=== PATIENT | male | born 1995 | race Caucasian/White ===

== ENCOUNTER 2022-12-15 09:29 | Outpatient (CLI) | payer OTHER, SELFPAY ==
--- NOTE | ~2022-12-15 | US_ITS ---
EXAMINATION: US retroperitoneal comp, US abdomen limited DATE: 12/15/2022 11:02 INDICATION: Elevated liver function in serum creatinine TECHNIQUE: Multiple grayscale and Doppler ultrasound images of the abdomen including the bilateral ki dneys and bladder were obtained. COMPARISON: None FINDINGS: The visualized pancreatic body is normal in appearance. The pancreatic head and tail are not clearly visualized. Proximal abdominal is normal in caliber measuring 1.9 cm in AP diameter. Liver has kofi l contour, with a smooth surface. There is increased parenchymal echogenicity, coarsened echotexture and poor acoustic penetration consistent with diffuse hepatic steatosis. No liver lesion identified. No intrahepatic biliary duct dilation suspected. Portal venous flow was seen in the hepatopetal, nor mal direction and has normal Doppler waveform. The poor acoustic penetration obscures the inferior ve na cava. The gallbladder is normal in appearance. There is no cholelithiasis. The common bile duct m easures 4 mm, which is normal. Sonographic Andersen sign was reported as negative by the olericulturist. There is normal renal contour and echogenicity bilaterally. The right kidney measures 9.9 x 4.8 x 4.9 cm and the left 12.3 x 4.9 x 3.6 cm. There are no focal renal lesions identified. There is no hydr onephrosis. Bladder is normal accounting for partially decompressed on the initial images with bilate ral ureteral jets visualized on color Doppler. Normal calculated postvoid bladder volume of 3 mL. IMPRESSION: 1. Diffuse hepatic steatosis. Otherwise unremarkable right upper quadrant ultrasound. 2. Normal kidneys with no hydronephrosis. Reviewed, dictated and finalized at location A. CAL BILLING AND CODING INSTRUCTOR IMPRESSION: 1. Diffuse hepatic steatosis. Otherwise unremarkable right upper quadrant ultra sound. 2. Normal kidneys with no hydronephrosis.
--- NOTE | ~2022-12-15 | US_ITS ---
EXAMINATION: US thyroid DATE: 12/15/2022 11:01 INDICATION: Abnormal thyroid function tests. TECHNIQUE: Multiple ultrasound images of the thyroid were obtained. COMPARISON: None. FINDINGS: The right thyroid lobe measures 5.3 x 2.2 x 1.3 cm. The left thyroid lobe measures 5.4 x 1.7 x 1.7 c m. The thyroid is diffusely heterogeneous and hypoechoic. No discrete nodule. Vascularity is normal. IMPRESSION: 1. 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 Reviewed, dictated and finalized at location A. DRENS CLUB ATTENDANT
== END 2022-12-15 09:30 | disposition home or self-care (01) ==
LOC: CHSIMG 09:33
PROVIDERS: PCP Registered Nurse; Visit Provider Registered Nurse
DX: R79.89 Other specified abnormal findings of blood chemistry (principal); K76.0 Fatty (change of) liver, not elsewhere classified
CPT/HCPCS: 76536; 76705; 76770

== ENCOUNTER 2023-05-20 08:01 | Outpatient (CLI) | payer OTHER, SELFPAY ==
[2023-05-20 08:14] LABS: Basophils Absolute Auto 0.04 K/mm3 (0.00-0.10); Basophils Percent Auto 0.5 % (0.0-1.0); Eosinophils Percent Auto 1.3 % (1.0-6.0); Hematocrit 47.4 % (40.0-54.0); Hemoglobin 15.6 g/dL (14.0-18.0); Immature Granulocyte Absolute 0.03 K/mm3 (0.00-0.00); Immature Granulocyte Percent A 0.4 % (0.0-0.0); Lymphocytes Absolute Auto 2.22 K/mm3 (1.10-4.50); Lymphocytes Percent Auto 29.2 % (18.0-42.0); Mean Corpuscular HGB Conc 32.9 g/dL (32.0-36.0); Mean Corpuscular Hemoglobin 28.9 pg (27.0-31.0); Mean Corpuscular Volume 87.8 fL (78.0-102.0); Mean Platelet Volume 9.7 fl (8.7-11.0); Monocytes Absolute Auto 0.62 K/mm3 (0.10-0.90); Monocytes Percent Auto 8.2 % (2.0-11.0); Neutrophils Absolute Auto 4.6 K/mm3 (1.7-7.2); Neutrophils Percent Auto 60.4 % (50.0-70.0); Platelet Count Result 211 K/mm3 (150-420); Red Cell Distribution Width 12.3 % (11.6-14.4); White Blood Count 7.6 K/mm3 (4.8-10.8)
[2023-05-20 08:55] LABS: Alanine Aminotransferase 32 U/L (16-63); Albumin Level 3.9 g/dL (3.4-5.0); Alkaline Phosphatase 66 U/L (46-116); Anion Gap 8 mmol/L (8-16); Aspartate Amino Transferase 14 U/L (15-37); Bilirubin,Total 0.5 mg/dL (0.00-1.00); Blood Urea Nitrogen 16 mg/dL (7-18); Calcium 9.1 mg/dL (8.5-10.1); Carbon Dioxide 33 mmol/L (21-32); Chloride 104 mmol/L (98-108); Estimated Glomerular Filt Rate > 60; Glucose 99 mg/dL (70-99); Osmolality Calculated 301 mOsm/kg (285-295); Potassium 3.9 mmol/L (3.5-5.1); Sodium 145 mmol/L (136-145); Total Protein 6.9 g/dL (6.4-8.2)
[2023-05-22 04:49] LABS: Total Triiodothyronine (T3) 108.7 ng/dL (76-181)
[2023-05-24 07:50] LABS: Vitamin D 25 Hydroxy 69 ng/mL (30-100)
== END 2023-05-20 08:02 | disposition home or self-care (01) ==
LOC: CHSLAB 08:03
PROVIDERS: PCP Family Medicine; Visit Provider Registered Nurse
DX: E55.9 Vitamin D deficiency, unspecified (principal); E78.5 Hyperlipidemia, unspecified; K76.0 Fatty (change of) liver, not elsewhere classified; E06.3 Autoimmune thyroiditis
CPT/HCPCS: 36415; 80053; 82306; 84436; 84443; 84480; 85025

== ENCOUNTER 2023-06-20 09:22 | Outpatient (CLI) | payer OTHER, SELFPAY ==
[2023-06-20 09:49] LABS: Basophils Absolute Auto 0.04 K/mm3 (0.00-0.10); Basophils Percent Auto 0.5 % (0.0-1.0); Eosinophils Absolute Auto 0.08 K/mm3 (0.02-0.50); Eosinophils Percent Auto 1.1 % (1.0-6.0); Hemoglobin 15.6 g/dL (14.0-18.0); Immature Granulocyte Absolute 0.05 K/mm3 (0.00-0.00); Immature Granulocyte Percent A 0.7 % (0.0-0.0); Lymphocytes Absolute Auto 2.22 K/mm3 (1.10-4.50); Lymphocytes Percent Auto 29.9 % (18.0-42.0); Mean Corpuscular HGB Conc 33.2 g/dL (32.0-36.0); Mean Corpuscular Hemoglobin 29.5 pg (27.0-31.0); Mean Corpuscular Volume 88.8 fL (78.0-102.0); Mean Platelet Volume 10.1 fl (8.7-11.0); Monocytes Percent Auto 8.1 % (2.0-11.0); Neutrophils Absolute Auto 4.4 K/mm3 (1.7-7.2); Neutrophils Percent Auto 59.7 % (50.0-70.0); Platelet Count Result 199 K/mm3 (150-420); Red Blood Count 5.29 M/mm3 (4.70-6.10); Red Cell Distribution Width 12.6 % (11.6-14.4); White Blood Count 7.4 K/mm3 (4.8-10.8)
[2023-06-20 10:42] LABS: Alanine Aminotransferase 45 U/L (16-63); Albumin Level 3.9 g/dL (3.4-5.0); Alkaline Phosphatase 67 U/L (46-116); Anion Gap 8 mmol/L (8-16); Aspartate Amino Transferase 14 U/L (15-37); Bilirubin,Total 0.4 mg/dL (0.00-1.00); Blood Urea Nitrogen 16 mg/dL (7-18); Calcium 8.9 mg/dL (8.5-10.1); Carbon Dioxide 33 mmol/L (21-32); Chloride 107 mmol/L (98-108); Estimated Glomerular Filt Rate > 60; Glucose 92 mg/dL (70-99); Osmolality Calculated 307 mOsm/kg (285-295); Potassium 4.1 mmol/L (3.5-5.1); Sodium 148 mmol/L (136-145); Thyroid Stimulating Hormone 3.83 uIU/mL (0.36-3.74); Total Protein 6.7 g/dL (6.4-8.2)
[2023-06-24 12:41] LABS: T4 Thyroxine 10.7 mcg/dL (5.9-10.3)
[2023-06-24 16:27] LABS: Total Triiodothyronine (T3) 121 ng/dL (76-181)
[2023-06-25 21:21] LABS: Vitamin D 25 Hydroxy 76 ng/mL (30-100)
== END 2023-06-20 09:23 | disposition home or self-care (01) ==
LOC: CHSLAB 09:23
PROVIDERS: PCP Registered Nurse; Visit Provider Registered Nurse
DX: E06.3 Autoimmune thyroiditis (principal)
CPT/HCPCS: 36415; 80053; 82306; 84436; 84443; 84480; 84481; 85025

== ENCOUNTER 2023-10-28 10:35 | Outpatient (CLI) | payer OTHER, SELFPAY ==
[2023-10-28 11:29] LABS: Basophils Absolute Auto 0.03 K/mm3 (0.00-0.10); Basophils Percent Auto 0.4 % (0.0-1.0); Eosinophils Percent Auto 1.3 % (1.0-6.0); Hematocrit 49.3 % (40.0-54.0); Hemoglobin 16.1 g/dL (14.0-18.0); Immature Granulocyte Absolute 0.03 K/mm3 (0.00-0.00); Immature Granulocyte Percent A 0.4 % (0.0-0.0); Lymphocytes Absolute Auto 2.05 K/mm3 (1.10-4.50); Lymphocytes Percent Auto 27.4 % (18.0-42.0); Mean Corpuscular HGB Conc 32.7 g/dL (32.0-36.0); Mean Corpuscular Hemoglobin 29.5 pg (27.0-31.0); Mean Corpuscular Volume 90.3 fL (78.0-102.0); Mean Platelet Volume 9.8 fl (8.7-11.0); Monocytes Absolute Auto 0.66 K/mm3 (0.10-0.90); Monocytes Percent Auto 8.8 % (2.0-11.0); Neutrophils Absolute Auto 4.6 K/mm3 (1.7-7.2); Neutrophils Percent Auto 61.7 % (50.0-70.0); Platelet Count Result 202 K/mm3 (150-420); Red Blood Count 5.46 M/mm3 (4.70-6.10); Red Cell Distribution Width 12.3 % (11.6-14.4); White Blood Count 7.5 K/mm3 (4.8-10.8)
[2023-10-28 12:07] LABS: Alanine Aminotransferase 40 U/L (16-63); Alkaline Phosphatase 63 U/L (46-116); Anion Gap 1 mmol/L (8-16); Aspartate Amino Transferase 17 U/L (15-37); Bilirubin,Total 0.6 mg/dL (0.00-1.00); Blood Urea Nitrogen 10 mg/dL (7-18); Calcium 9.2 mg/dL (8.5-10.1); Carbon Dioxide 37 mmol/L (21-32); Chloride 102 mmol/L (98-108); Cholesterol 110 mg/dL (0-200); Estimated Glomerular Filt Rate > 60; Glucose 86 mg/dL (70-99); HDL Direct 48 mg/dL (40-60); LDL Cholesterol Calculated 53 mg/dL (<130); Osmolality Calculated 288 mOsm/kg (285-295); Sodium 140 mmol/L (136-145); Thyroid Stimulating Hormone 6.98 uIU/mL (0.36-3.74); Triglycerides 43 mg/dL (0-150)
[2023-11-01 21:48] LABS: Vitamin D 25 Hydroxy 73 ng/mL (30-100)
== END 2023-10-28 10:36 | disposition home or self-care (01) ==
LOC: CHSLAB 10:38
PROVIDERS: PCP Registered Nurse; Visit Provider Registered Nurse
DX: E55.9 Vitamin D deficiency, unspecified (principal); E78.5 Hyperlipidemia, unspecified; E06.3 Autoimmune thyroiditis
CPT/HCPCS: 36415; 80053; 80061; 82306; 84439; 84443; 85025

== ENCOUNTER 2023-11-20 17:16 | Emergency (ER) | payer OTHER, SELFPAY ==
--- NOTE | ~2023-11-20 | CT_ITS ---
EXAMINATION: CT abdomen pelvis wo con DATE: 11/20/2023 18:11 INDICATION: Abdominal pain. Right testicular pain. TECHNIQUE: Computed tomography (CT) of the abdomen and pelvis was performed without intravenous contr ast. Automated exposure control and iterative reconstruction technique were employed. The dose-length product was 1027.08 mGy-cm. COMPARISON: None. FINDINGS: The visualized portions of the lung bases demonstrate mild bronchiectasis. Calcified pulmon rupert nodules are consistent with old granulomatous disease. There are nodules in the lungs measuring u p to 4 mm, likely benign. No pleural effusion. The heart size is normal. No pericardial effusion. The re is a small sliding hiatal hernia. There is diffuse hepatic steatosis. The gallbladder, spleen, kolb creas, adrenal glands, and right kidney are normal. There is a 1 mm stone in left kidney. There are n o dilated loops of bowel. The appendix is normal. There are no pathologically enlarged lymph nodes. T here is no free intraperitoneal fluid. There is osteonecrosis involving the femoral heads. There is m ild lumbar spondylosis. IMPRESSION: 1. Small sliding hiatal hernia. 2. Diffuse hepatic steatosis. 3. Small pulmonary nodules and mild bilateral bronchiectasis, likely chronic infection. 4. Osteonecrosis involving the femoral heads. Reviewed, dictated and finalized at location E. ION DIRECTOR IMPRESSION: 1. Small sliding hiatal hernia. 2. Diffuse hepatic steatosis. 3. Small pulmonary nodules and mild bilateral bronchiectasis, likely chronic in fection. 4. Osteonecrosis involving the femoral heads.
[2023-11-20 17:19] VITALS: BP 137/94; PULSE 86; RESP 19; O2SAT 98
--- NOTE | 2023-11-20 17:47 | ED.ABDPAIN ---
HPI - Abdominal Pain General Chief Complaint: Abdominal Pain Stated Complaint: ABD PAIN Time Seen by Provider: 11/20/23 17:24 Source: patient Mode of arrival: ambulatory Limitations: no limitations History of Present Illness HPI narrative: Patient is a 28-year-old male with acute on chronic abdominal pain specifically midepigastrium. He also has a new finding on his right testicle area in the scrotum above the right testicle of some new material type sensation. MD elicited complaint: abdominal pain Pertinent past history: other ( Chronic abdominal pains) Onset (ago): week(s) (1) Pain Consistency: constant Location: epigastric Severity: moderate Pain scale (0-10): 5 Quality: cramping, stabbing and sharp Radiation: none Migration to: no migration Exacerbating factors: nothing Relieving factors: nothing Context: confirms other ( patient has chronic abdominal pains but this appears different in nature) Associated symptoms: other ( he also noticed right testicle new finding on the top of the right testicle) Related Data Allergies Allergy/AdvReac Type Severity Reaction Status Date / Time No Known Allergies Allergy Verified 11/20/23 19:13 Review of Systems Review of Systems: All systems reviewed & are unremarkable except as noted in HPI and below Constitutional: Constitutional: Reports no additional constitutional complaints Eyes: Eyes: Reports no additional eye complaints ENT: Reports system reviewed and no additional complaints, except as documented Cardiovascular: Cardiovascular: Reports no additional cardiovascular complaints Respiratory: Respiratory: Reports no additional respiratory complaints Gastrointestinal: Gastrointestinal: Reports no additional gastrointestinal complaints Genitourinary: Genitourinary: Reports no additional male genitourinary complaints Musculoskeletal: Musculoskeletal: Reports no additional musculoskeletal complaints Integumentary/Breasts: Skin/Breast: Reports system reviewed and no additional complaints, except as docu Neurologic: Reports system reviewed and no additional complaints, except as documented Psychiatric: Psychiatric: Reports no additional psychiatric complaints Endocrine: Endocrine: Reports no additional endocrine complaints Hematologic/Lymphatic: Hematologic/Lymphatic: Reports no additional hematologic/lymphatic complaints Allergic/Immunologic: Allergic/Immunologic: Reports no additional allergic/immunologic complaints PMFSH Family History Family History Mother No family history of hypertension Social History Social History Smoking status: Never smoker Exam Const: General: healthy appearing Nutritional Appearance: well nourished Orientation/consciousness: patient oriented x3 HENMT: Head: normal to inspection Ears: external ears normal Face/Nose/Sinus: Normal external nose present Eyes: Conjunctivae: conjunctivae normal Pupils: Equal, round and reactive pupils present EOM: EOMs intact bilaterally Neck: Neck: normal visual inspection Chest: Chest palpation & inspection: normal inspection of the chest Resp: Effort & Inspection: normal respiratory effort and not labored Auscultation: clear to auscultation bilaterally and no crackles Cardio: Rate: regular rate Rhythm: regular rhythm Heart sounds: no murmurs GI: Inspection: non-distended GI Palp: Yes Soft to palpation, No Tenderness to palpation present (GI) and No Guarding due to palpation present (GI) Auscultation: normal bowel sounds : General: Yes bladder normal to palpation Back/Spine/Pelvis: Back: no CVA tenderness Skin: General skin exam: normal color Rashes: no rashes Wounds: no wounds Neuro: General: patient oriented x3 Cranial nerves: Yes Nystagmus not present Speech: normal speech Extrem: General: normal to inspection Psych: Mental Status: mental status grossly no
[2023-11-20 17:57] LABS: Appearance Urine Clear (Clear); Bilirubin Urine Negative (Negative); Blood Urine Negative (Negative); Color Urine Yellow (Yellow); Glucose Urine UA Negative (Negative); Ketones Urine Negative (Negative); Leukocyte Esterase Ur Negative LEU/UL (Negative); Nitrate Urine Negative (Negative); Protein Urine Negative (Negative); Urobilinogen Urine 0.2 mg/dL (0.2-1.0); pH Urine 6.5 (5.0-8.0)
[2023-11-20 18:01] LABS: Add Urine Microscopic? NO
[2023-11-20 18:25] LABS: Basophils Absolute Auto 0.03 K/mm3 (0.00-0.10); Basophils Percent Auto 0.4 % (0.0-1.0); Eosinophils Absolute Auto 0.06 K/mm3 (0.02-0.50); Eosinophils Percent Auto 0.8 % (1.0-6.0); Hematocrit 45.6 % (40.0-54.0); Hemoglobin 15.3 g/dL (14.0-18.0); Immature Granulocyte Absolute 0.02 K/mm3 (0.00-0.00); Immature Granulocyte Percent A 0.3 % (0.0-0.0); Lymphocytes Absolute Auto 1.44 K/mm3 (1.10-4.50); Mean Corpuscular HGB Conc 33.6 g/dL (32.0-36.0); Mean Corpuscular Hemoglobin 29.7 pg (27.0-31.0); Mean Corpuscular Volume 88.4 fL (78.0-102.0); Mean Platelet Volume 9.3 fl (8.7-11.0); Monocytes Absolute Auto 0.59 K/mm3 (0.10-0.90); Monocytes Percent Auto 8.2 % (2.0-11.0); Neutrophils Absolute Auto 5.1 K/mm3 (1.7-7.2); Neutrophils Percent Auto 70.3 % (50.0-70.0); Platelet Count Result 192 K/mm3 (150-420); Red Blood Count 5.16 M/mm3 (4.70-6.10); Red Cell Distribution Width 12.1 % (11.6-14.4); White Blood Count 7.2 K/mm3 (4.8-10.8)
[2023-11-20 18:40] LABS: Partial Thromboplastin Time 24.4 SEC (23.90-30.70)
[2023-11-20 18:43] LABS: Alanine Aminotransferase 52 U/L (16-63); Albumin Level 3.9 g/dL (3.4-5.0); Alkaline Phosphatase 54 U/L (46-116); Anion Gap 3 mmol/L (8-16); Aspartate Amino Transferase 15 U/L (15-37); Bilirubin,Total 0.4 mg/dL (0.00-1.00); Blood Urea Nitrogen 10 mg/dL (7-18); Calcium 8.4 mg/dL (8.5-10.1); Carbon Dioxide 36 mmol/L (21-32); Chloride 103 mmol/L (98-108); Estimated CRCL calculation 95 ml/min; Estimated Glomerular Filt Rate > 60; Glucose 98 mg/dL (70-99); Lipase 25 U/L (16-77); Osmolality Calculated 293 mOsm/kg (285-295); Potassium 3.8 mmol/L (3.5-5.1); Sodium 142 mmol/L (136-145); Total Protein 6.9 g/dL (6.4-8.2)
[2023-11-20 18:45] LABS: Lactic Acid Reflex 1.4 mmol/L (0.4-2.0)
[2023-11-20] MEDS: MAG HYDROX/ALUMINUM HYD/SIMETH 30 ML, PHENobarb/HYOSCY/ATROPINE/SCOP 32.4 MG, LIDOCAINE... PO (19:36)
[2023-11-20 19:39] VITALS: BP 136/87; PULSE 98; RESP 16; TEMP 36.9; O2SAT 97
== END 2023-11-20 19:55 | disposition home or self-care (01) ==
PROVIDERS: Emergency Provider Emergency Medicine; PCP Registered Nurse
DX: K29.70 Gastritis, unspecified, without bleeding (principal)
CPT/HCPCS: 36415; 74176; 80053; 81003; 83605; 83690; 85025; 85610; 85730; 99284; A9270

== ENCOUNTER 2023-12-14 15:57 | Outpatient (CLI) | payer OTHER, SELFPAY ==
--- NOTE | ~2023-12-14 | CT_ITS ---
CT Scan of the Chest without Contrast: Clinical Indication: Cough, pulmonary nodule Technique: Contiguous sections were acquired throughout the chest without intravenous contrast. Dose reduction technique was used on this scan by utilizing automated exposure control and iterative recon struction technique. The dose-length product (DLP) was 156.11 mGy-cm. COMPARISON: 11/20/2023 Findings: There is no evidence of any significant mediastinal, hilar or axillary lymphadenopathy. The mediastin al soft tissues appear normal. Small hiatal hernia present. There is no evidence of pleural or pericardial effusion. 3 mm right apical pulmonary nodule present. Several subcentimeter groundglass nodules are present in the right upper lobe. There are multiple small calcified nodules in the right lower lobe, possibly re lated to prior aspiration granulomatous disease. 7 mm left basilar pulmonary nodule is present, simil ar to prior exam.. Images through the upper abdomen reveal probable diffuse fatty infiltration of the liver. Impression: Small bilateral pulmonary nodules, as detailed above. According to Fleischner Society criteria, for a low-risk patient, follow-up CT scan in 6-12 months advised, then consider 18-[address] For a high -risk patient, follow-up CT scans at both 6-12 months and 18-24 months are recommended. Reviewed, dictated and finalized at location . E CONSERVATIONIST Impression: Small bilateral pulmonary nodules, as detailed above. According to Fleischner S ociety criteria, for a low-risk patient, follow-up CT scan in 6-12 months advis ed, then consider 18-[address] For a high-risk patient, follow-up CT scans a t both 6-12 months and 18-24 months are recommended.
== END 2023-12-14 15:58 | disposition home or self-care (01) ==
LOC: CHSIMG 15:58
PROVIDERS: PCP Registered Nurse; Visit Provider Registered Nurse
DX: R91.8 Other nonspecific abnormal finding of lung field (principal)
CPT/HCPCS: 71250

== ENCOUNTER 2024-01-01 13:15 | Emergency (ER) | payer OTHER, SELFPAY ==
--- NOTE | ~2024-01-01 | CT_ITS ---
EXAMINATION: CT brain wo con DATE: 01/01/2024 13:57 INDICATION: Headache TECHNIQUE: Computed tomography (CT) of the head was performed without intravenous contrast. The mA wa s adjusted according to patient size. Iterative reconstruction technique was employed. Exam dose: 60 5.33 mGy-cm total exam DLP. COMPARISON: None FINDINGS: No intracranial mass lesion or hemorrhage or cerebrovascular accident. No midline shift or mass effect. Normal ventricular size. Normal noble-white matter differentiation. No subdural or epidur al hematoma is detected. The orbits are unremarkable. The mastoid air cells are normally developed and aerated. The included paranasal sinuses are unremark able. No fracture or bone destruction of the cranial vault. IMPRESSION: Negative Reviewed, dictated and finalized at Location A. Reviewed, dictated and finalized at location B. ARCH INSTRUCTOR IMPRESSION: Negative
[2024-01-01 13:16] VITALS: BP 122/65; PULSE 74; RESP 19; TEMP 36.7; O2SAT 100
--- NOTE | 2024-01-01 13:23 | ED.GENADULT ---
HPI - General Adult General Chief complaint: Weakness Stated complaint: unspecified Time Seen by Provider: 01/01/24 13:23 History of Present Illness HPI narrative: The patient is a 28-year-old male with history of Alberto's thyroiditis, on levothyroxine. He has not missed any doses of his medications. He does not smoke cigarettes or use alcohol or drugs. No other significant past medical history. He presents with a sudden onset of his legs buckling at 12:45 p.m. today, 01/01/2024, while he was in the bathroom, he held on to something and noticed that his legs were numb for 15 minutes. He could not move his legs very well with generalized weakness mostly in the lower extremities, associated with a frontal headache, dizziness, diplopia. Symptoms lasted 15 minutes for the lower extremities and then he was able to ambulate. He still does not feel normal. He feels his legs are heavier than usual. Everything is slowed and delayed. No nausea or vomiting or fevers or chills or rhinorrhea or nasal congestion or sore throat. no chest or abdominal pain. No URI symptoms or UTI symptoms. Related Data Allergies Allergy/AdvReac Type Severity Reaction Status Date / Time No Known Allergies Allergy Verified 01/01/24 13:55 Review of Systems Review of Systems: All systems reviewed & are unremarkable except as noted in HPI and below Constitutional: Constitutional: Denies chills, Denies excessive sweating, Reports fatigue, Denies fever(s), Reports headache(s) and Reports weakness Eyes: Eyes: Denies change in vision and Denies photophobia ENT: Denies dysphagia, Reports dizziness, Reports headache(s), Denies lip swelling, Denies nasal congestion, Denies sore throat and Denies tongue swelling Cardiovascular: Cardiovascular: Denies chest pain, Denies syncope, Denies rapid heart rate and Denies dyspnea Respiratory: Respiratory: Denies cough, Denies dyspnea and Denies wheezing Gastrointestinal: Gastrointestinal: Denies abdominal pain, Denies constipation, Denies dysphagia, Denies diarrhea, Denies nausea and Denies vomiting Genitourinary: Genitourinary: Denies hematuria, Denies dysuria, Denies urinary frequency and Denies urinary urgency Musculoskeletal: Musculoskeletal: Denies back pain, Denies myalgias, Denies arthralgias, Denies joint swelling, Reports muscle cramps and Reports numbness Integumentary/Breasts: Skin/Breast: Denies pruritus, Denies erythema and Denies rash Neurologic: Denies confusion, Reports dizziness, Denies syncope, Reports headache(s), Denies focal weakness, Denies numbness and Reports weakness Psychiatric: Psychiatric: Denies anxiety and Denies confusion Endocrine: Endocrine: Denies excessive sweating and Reports fatigue Hematologic/Lymphatic: Hematologic/Lymphatic: Denies easy bleeding and Denies easy bruising Allergic/Immunologic: Allergic/Immunologic: Denies lip swelling, Denies tongue swelling and Denies wheezing PMFSH Family History Family History Mother No family history of hypertension Social History Social History Smoking status: Never smoker Exam Const: General: healthy appearing, no acute distress, alert and well nourished Nutritional Appearance: well nourished Orientation/consciousness: patient oriented x3 Limitations: no limitations HENMT: Head: normal to inspection Ears: external ears normal Face/Nose/Sinus: normal facial exam Face and sinus: normal facial exam Mouth: Yes moist mucous membranes Throat: posterior oropharynx normal Eyes: Conjunctivae: conjunctivae normal Pupils: Equal, round and reactive pupils present EOM: EOMs intact bilaterally Neck: Neck: normal visual inspection and no meningeal signs Chest: Chest palpation & inspection: normal inspection of the chest and no tenderness Resp: Effort & Inspection: normal respiratory effort and not labored Auscultation: clear to
[2024-01-01 13:44] LABS: Basophils Absolute Auto 0.05 K/mm3 (0.00-0.10); Basophils Percent Auto 0.8 % (0.0-1.0); Eosinophils Absolute Auto 0.08 K/mm3 (0.02-0.50); Eosinophils Percent Auto 1.2 % (1.0-6.0); Hematocrit 45.1 % (40.0-54.0); Hemoglobin 15.2 g/dL (14.0-18.0); Immature Granulocyte Absolute 0.02 K/mm3 (0.00-0.00); Immature Granulocyte Percent A 0.3 % (0.0-0.0); Lymphocytes Absolute Auto 1.94 K/mm3 (1.10-4.50); Lymphocytes Percent Auto 29.7 % (18.0-42.0); Mean Corpuscular HGB Conc 33.7 g/dL (32.0-36.0); Mean Corpuscular Hemoglobin 29.1 pg (27.0-31.0); Mean Corpuscular Volume 86.2 fL (78.0-102.0); Mean Platelet Volume 9.5 fl (8.7-11.0); Monocytes Absolute Auto 0.55 K/mm3 (0.10-0.90); Monocytes Percent Auto 8.4 % (2.0-11.0); Neutrophils Absolute Auto 3.9 K/mm3 (1.7-7.2); Neutrophils Percent Auto 59.6 % (50.0-70.0); Platelet Count Result 166 K/mm3 (150-420); Red Blood Count 5.23 M/mm3 (4.70-6.10); White Blood Count 6.5 K/mm3 (4.8-10.8)
[2024-01-01 13:59] LABS: Lactic Acid Reflex 0.8 mmol/L (0.4-2.0)
[2024-01-01 14:06] LABS: Alanine Aminotransferase 47 U/L (16-63); Albumin Level 3.5 g/dL (3.4-5.0); Alkaline Phosphatase 58 U/L (46-116); Anion Gap 8 mmol/L (8-16); Aspartate Amino Transferase 16 U/L (15-37); Bilirubin,Total 0.9 mg/dL (0.00-1.00); Blood Urea Nitrogen 8 mg/dL (7-18); Calcium 8.5 mg/dL (8.5-10.1); Carbon Dioxide 29 mmol/L (21-32); Chloride 104 mmol/L (98-108); Creatine Kinase 66 U/L (39-308); Estimated CRCL calculation 117 ml/min; Estimated Glomerular Filt Rate > 60; Glucose 95 mg/dL (70-99); Magnesium 1.7 mg/dL (1.8-2.4); Osmolality Calculated 290 mOsm/kg (285-295); Potassium 3.7 mmol/L (3.5-5.1); Sodium 141 mmol/L (136-145); Total Protein 6.5 g/dL (6.4-8.2)
[2024-01-01 14:07] LABS: CRP < 0.5 mg/dL (0.0-0.9); Ethanol < 3 mg/dL (0-6)
[2024-01-01] MEDS: SODIUM CHLORIDE 0.9% IV 1,000 ML 999 ML IV CONT ×2 (14:08→14:09)
[2024-01-01 14:17] VITALS: BP 122/71; PULSE 73
[2024-01-01 14:18] LABS: Thyroid Stimulating Hormone Reflex 1.04 u/IU/mL (0.36-3.74)
[2024-01-01 14:27] VITALS: BP 129/81; BP 132/79; PULSE 79; PULSE 81
[2024-01-01 14:49] LABS: Erythrocyte Sedimentation Rate 3 mm/hr (0-15)
[2024-01-01] MEDS: MAGNESIUM SULF 2 GM/WATER 50ML 2 GM/50 ML BAG IVPB (15:07)
[2024-01-01 15:10] LABS: Appearance Urine Clear (Clear); Bilirubin Urine Negative (Negative); Blood Urine Negative (Negative); Color Urine Light Yellow (Yellow); Glucose Urine UA Negative (Negative); Ketones Urine Negative (Negative); Leukocyte Esterase Ur Negative LEU/UL (Negative); Nitrate Urine Negative (Negative); Protein Urine Negative (Negative); Specific Grav Ur 1.015 (1.010-1.020); Urobilinogen Urine 0.2 mg/dL (0.2-1.0)
[2024-01-01 15:12] LABS: Add Urine Microscopic? NO
[2024-01-01 15:15] LABS: Amphetamine Screen Urine Negative (Negative); Barbiturate Screen Urine Negative (Negative); Benzodiazepines Screen Urine Negative (Negative); Cannabinoid Screen Urine Negative (Negative); Cocaine Screen Urine Negative (Negative); Methadone Screen Urine Negative (Negative); Opiate Screen Urine Negative (Negative); Phencyclidine Screen Urine Negative (Negative)
[2024-01-01 15:24] LABS: Ammonia 24 umol/L (11-32); Lactate Dehydrogenase 120 U/L (85-227)
[2024-01-01 15:25] LABS: Creatine Kinase 70 U/L (39-308)
[2024-01-01 16:06] LABS: SARS-CoV-2 RNA PCR Negative (Negative)
[2024-01-01 16:08] LABS: Influenza A QL RT-PCR Negative (Negative); Influenza B QL RT-PCR Negative (Negative); RSV RNA, RT-PCR Negative (Negative)
[2024-01-01 17:03] VITALS: BP 134/82; PULSE 74; RESP 20; TEMP 37; O2SAT 100
== END 2024-01-01 17:03 | disposition home or self-care (01) ==
PROVIDERS: Emergency Provider Emergency Medicine
DX: R53.1 Weakness (principal); R42 Dizziness and giddiness; E83.42 Hypomagnesemia; Z79.899 Other long term (current) drug therapy; Z20.822 Contact with and (suspected) exposure to COVID-19
CPT/HCPCS: 36415; 70450; 80053; 80307; 81003; 82140; 82550; 83605; 83615; 83735; 84443; 85025; 85652; 86140; 87637; 96361; 96365; 99284; J3475; J7030

== ENCOUNTER 2024-03-15 14:17 | Outpatient (CLI) | payer OTHER, SELFPAY ==
[2024-03-15 15:58] LABS: Alanine Aminotransferase 35 U/L (16-63); Albumin Level 4.1 g/dL (3.4-5.0); Alkaline Phosphatase 61 U/L (46-116); Anion Gap 5 mmol/L (4-12); Aspartate Amino Transferase 14 U/L (15-37); Bilirubin,Total 0.6 mg/dL (0.00-1.00); Blood Urea Nitrogen 9 mg/dL (7-18); Calcium 9.1 mg/dL (8.5-10.1); Carbon Dioxide 34 mmol/L (21-32); Chloride 104 mmol/L (98-108); Cholesterol 112 mg/dL (0-200); Estimated Glomerular Filt Rate > 60; Glucose 91 mg/dL (70-99); HDL Direct 53 mg/dL (40-60); LDL Cholesterol Calculated 53 mg/dL (<130); Magnesium 1.8 mg/dL (1.8-2.4); Osmolality Calculated 294 mOsm/kg (285-295); Potassium 4.4 mmol/L (3.5-5.1); Sodium 143 mmol/L (136-145); Thyroid Stimulating Hormone 1.25 uIU/mL (0.36-3.74); Total Protein 6.7 g/dL (6.4-8.2); Triglycerides 30 mg/dL (0-150); Vitamin B12 334 pg/mL (193-986)
[2024-03-15 15:59] LABS: CRP < 0.5 mg/dL (0.0-0.9); Erythrocyte Sedimentation Rate 2 mm/hr (0-15)
[2024-03-17 04:29] LABS: Vitamin D 25 Hydroxy 73 ng/mL (30-100)
[2024-03-17 12:29] LABS: Anti Cyclic Citrullinated Pept <16 UNITS
== END 2024-03-15 14:18 | disposition home or self-care (01) ==
PROVIDERS: PCP Registered Nurse; Visit Provider Registered Nurse
DX: M87.9 Osteonecrosis, unspecified (principal); E78.5 Hyperlipidemia, unspecified; E06.3 Autoimmune thyroiditis; E55.9 Vitamin D deficiency, unspecified; R53.83 Other fatigue
CPT/HCPCS: 36415; 80053; 80061; 82306; 82607; 83735; 84436; 84443; 84479; 85652; 86038; 86140; 86200

== ENCOUNTER 2024-04-22 07:03 | Outpatient (CLI) | payer OTHER, SELFPAY ==
[2024-04-25 14:49] LABS: Immunoglobulin A 83 mg/dL (47-310); TTG IGA AB <1.0 U/mL
== END 2024-04-22 07:04 | disposition home or self-care (01) ==
LOC: CHSLAB 07:05
PROVIDERS: PCP Registered Nurse; Visit Provider Nurse Practitioner
DX: R13.10 Dysphagia, unspecified (principal); G89.29 Other chronic pain; R10.9 Unspecified abdominal pain
CPT/HCPCS: 36415; 82784; 83516

== ENCOUNTER 2024-05-18 08:41 | Day surgery (SDC) | payer OTHER, SELFPAY ==
[2024-04-25 09:28] VITALS: BMI 29.6
--- NOTE | 2024-05-10 14:01 | SUR.PREOP ---
During pre-op interview pt states that the only time he has had anesthesia of any form was when he was 7 years old and had some sort of surgery on my urinary tract because it wasn't wired right. Pt states after surgery that he had to relearn how to walk over the next three months. Pt unable to state if this was from a complication of the surgery. Pt states recovered fine motor skills but states sometimes I have a hard time holding a pencil. Pt states I'm a poor historian when it comes to my medical history and I can't give you more details than that. Relayed information to Dr. Brown who state pt okay to have procedure at [facility].
[2024-05-18 09:25] VITALS: BP 128/81; PULSE 62; RESP 18; TEMP 37.2; O2SAT 100
[2024-05-18] MEDS: LACTATED RINGERS 1,000 ML 150 ML IV CONT (09:29)
--- NOTE | 2024-05-18 09:44 | WPDHPUPDATE1 ---
History and Physical Update Update Date/Time: 05/18/24 09:44 Patient reports he has difficulty initiating a swallow. EGD to be performed today , If this fails to identify etiology of swallowing difficulties , then ENT evaluation and possible modified barium swallow may be of help. History and Physical has been reviewed, including an updated exam of the patient. There are NO changes in the patient's condition. Risks, benefits, and alternatives have been discussed and questions answered. Patient agrees to proceed with procedure.
--- NOTE | 2024-05-18 09:45 | WPDANESEPPF ---
Anes - Initial Pre Proc Eval Procedure: Operation Date: 05/18/24 10:30 Proposed Procedures p Esophagogastroduodenoscopy - Andrew Marcial MD Date/Time: 05/18/24 09:45 Surgeon: Andrew Marcial MD Pre Op Diagnosis: Dysphagia & abdominal pain unspecified, other Patient Data Age: 28 Gender: M Height: 1.8 m Weight: 96 kg Last Vital Signs Temp 37.2 C 05/18/24 09:25 Pulse 62 05/18/24 09:25 Resp 18 05/18/24 09:25 BP 128/81 05/18/24 09:25 Pulse Ox 100 05/18/24 09:25 O2 Del Method Room Air 05/18/24 09:25 Allergies Allergy/AdvReac Type Severity Reaction Status Date / Time No Known Allergies Allergy Verified 05/18/24 09:24 Home Medications Medication Instructions Recorded Confirmed Type ergocalciferol (vitamin D2) 1,250 1,250 mcg PO WEEKLY 04/14/24 05/18/24 History mcg (50,000 unit) capsule levothyroxine 175 mcg capsule 175 mcg PO DAILY 04/14/24 05/18/24 History magnesium oxide 500 mg capsule 500 mg PO DAILY 04/14/24 05/18/24 History prednisone 10 mg tablet 10 mg PO BID #20 tabs 04/14/24 05/18/24 Rx fluoxetine 20 mg capsule 20 mg PO DIRECTED 05/10/24 05/18/24 History Patient hx anesthesia problems: none Family hx anesthesia problems: none Results Review: All pre-operative results and documents have been reviewed as part of the pre-operative evaluation. [facility] Past Medical History Medical History Abnormal finding on thyroid function test Anxiety Magnesium deficiency Vitamin D deficiency Family History Family History Mother No family history of hypertension Social History Social History Smoking status: Never smoker Alcohol intake: never Substance use type: does not use Do You Feel Safe in your Home?: Yes Lack of Transportation: No Lack of Food: Never True Current Housing: I Have Housing Concerned About Future Housing: No Difficulty Paying Gas/Electric Bills: No Difficulty Paying for Meds: No Currently Unemployed: YES Education: High School Diploma/GED Difficulty w/ Childcare or Family Care: No Living arrangements: with family Occupation/Education: other Gender identity (if verbalized by the patient): Male Anes - Chirag Final PreProcedure Day of Procedure 05/18/24 09:45 Patient weight: overweight Heart: regular rate and rhythm Lungs: clear to auscultation Airway: Mallampati scale class II Neurological: alert and oriented Last oral intake: >/= 8 hours ASA classification: II Emergent: no Anesthetic plan: proceed Anesthesia type and monitoring: general GIVS and standard monitoring Results Review: All pre-operative results and documents have been reviewed as part of the pre-operative evaluation. Informed Consent: The patient's anesthetic plan and its attendant risks and benefits were discussed with the patient/family/POA. Questions were solicited and answers provided to the satisfaction of the patient/family/POA.
[2024-05-18 10:35] VITALS: BP 115/68; PULSE 64; RESP 16; O2SAT 100
[2024-05-18 10:38] VITALS: BP 110/77; PULSE 69; RESP 18; O2SAT 100
[2024-05-18 10:48] VITALS: BP 116/81; PULSE 66; RESP 18; O2SAT 100
--- NOTE | 2024-05-18 10:59 | WPDANESPN ---
Anes - Prog Note Post-Op Date/Time: 05/18/24 10:59 Cardiovascular status: normal Respiratory status: normal Airway patency: baseline Mental status: baseline Post-Op hydration status: normal Vital Signs: Last Vital Signs Temp 37.2 C 05/18/24 09:25 Pulse 66 05/18/24 10:48 Resp 18 05/18/24 10:48 BP 116/81 05/18/24 10:48 Pulse Ox 100 05/18/24 10:48 O2 Del Method Room Air 05/18/24 10:48 Pain Score (VAS): 0/10 I/O: Intake & Output 05/17/24 05/18/24 05/18/24 23:59 07:59 15:59 Intake Total 300 Balance 300 Patient Feedback: Patient satisfied with anesthetic care.
== END 2024-05-18 10:59 | disposition home or self-care (01) ==
PROVIDERS: PCP Registered Nurse; Visit Provider Internal Medicine Gastroenterology
PROC: 0DJ08ZZ Inspection of Upper Intestinal Tract, Via Natural or Artificial Opening Endoscopic (ICD-10-PCS; CPT 43235; principal; 2024-05-18 10:30)
DX: R13.12 Dysphagia, oropharyngeal phase (principal); R13.19 Other dysphagia
CPT/HCPCS: 43235

== ENCOUNTER 2024-06-21 10:10 | Outpatient (CLI) | payer OTHER, SELFPAY ==
--- NOTE | ~2024-06-21 | CT_ITS ---
CT Scan of the Chest without Contrast: Clinical Indication: Pulmonary nodules Technique: Contiguous sections were acquired throughout the chest without intravenous contrast. Dose reduction technique was used on this scan by utilizing automated exposure control and iterative recon struction technique. The dose-length product (DLP) was 120.18 mGy-cm. COMPARISON: 12/14/2023 Findings: There is no evidence of any significant mediastinal, hilar or axillary lymphadenopathy. The mediastin al soft tissues appear normal. There is no evidence of pleural or pericardial effusion. Multiple scattered calcified granulomas, predominantly the lung bases, and multiple additional small nodules, are similar to prior exam. Images through the upper abdomen reveal no abnormalities. Impression: Stable subcentimeter pulmonary nodules and calcified granulomas, predominantly the lung bases. Reviewed, dictated and finalized at [facility]. Impression: Stable subcentimeter pulmonary nodules and calcified granulomas, predominantly the lung bases.
[2024-06-21 19:07] LABS: Cholesterol 120 mg/dL (0-200); HDL Direct 58 mg/dL (40-60); LDL Cholesterol Calculated 56 mg/dL (<130); Magnesium 1.8 mg/dL (1.8-2.4); Triglycerides 30 mg/dL (0-150)
[2024-06-24 17:51] LABS: Reference Lab Test Name THYROID PN WITH TSH
== END 2024-06-21 10:11 ==
LOC: CHSIMG 10:16
PROVIDERS: PCP Registered Nurse; Visit Provider Registered Nurse
DX: E78.5 Hyperlipidemia, unspecified (principal); E83.42 Hypomagnesemia; E06.3 Autoimmune thyroiditis; R91.8 Other nonspecific abnormal finding of lung field
CPT/HCPCS: 36415; 71250; 80061; 83735; 84436; 84443; 84479

== ENCOUNTER 2024-07-29 10:44 | Outpatient (CLI) | payer OTHER, SELFPAY ==
[2024-07-29 14:46] LABS: Cholesterol 119 mg/dL (0-200); HDL Direct 57 mg/dL (40-60); LDL Cholesterol Calculated 55 mg/dL (<130); Magnesium 1.8 mg/dL (1.8-2.4); Triglycerides 33 mg/dL (0-150); Vitamin B12 272 pg/mL (193-986)
[2024-07-29 15:13] LABS: Thyroid Stimulating Hormone Reflex 0.38 u/IU/mL (0.36-3.74)
== END 2024-07-29 10:45 | disposition home or self-care (01) ==
LOC: CHSLAB 10:47
PROVIDERS: PCP Registered Nurse; Visit Provider Registered Nurse
DX: R53.83 Other fatigue (principal); E06.3 Autoimmune thyroiditis; E83.42 Hypomagnesemia; E78.5 Hyperlipidemia, unspecified
CPT/HCPCS: 36415; 80061; 82607; 83735; 84443

== ENCOUNTER 2024-12-02 10:45 | Outpatient (CLI) | payer OTHER, SELFPAY ==
[2024-12-02 11:02] LABS: Basophils Absolute Auto 0.04 K/mm3 (0.00-0.10); Basophils Percent Auto 0.5 % (0.0-1.0); Eosinophils Absolute Auto 0.16 K/mm3 (0.02-0.50); Eosinophils Percent Auto 2.1 % (1.0-6.0); Hematocrit 47.7 % (40.0-54.0); Hemoglobin 15.7 g/dL (14.0-18.0); Immature Granulocyte Absolute 0.02 K/mm3 (0.00-0.00); Immature Granulocyte Percent A 0.3 % (0.0-0.0); Lymphocytes Absolute Auto 2.27 K/mm3 (1.10-4.50); Lymphocytes Percent Auto 30.1 % (18.0-42.0); Mean Corpuscular HGB Conc 32.9 g/dL (32-36); Mean Corpuscular Hemoglobin 28.9 pg (27.0-31.0); Mean Corpuscular Volume 87.8 fL (78.0-102.0); Mean Platelet Volume 9.4 fl (8.7-11.0); Monocytes Absolute Auto 0.63 K/mm3 (0.10-0.90); Monocytes Percent Auto 8.4 % (2.0-11.0); Neutrophils Absolute Auto 4.42 K/mm3 (1.70-7.20); Neutrophils Percent Auto 58.6 % (50.0-70.0); Platelet Count Result 181 K/mm3 (150-420); Red Blood Count 5.43 M/mm3 (4.70-6.10); Red Cell Distribution Width 12.5 % (11.6-14.4); White Blood Count 7.5 K/mm3 (4.8-10.8)
[2024-12-02 12:06] LABS: Alanine Aminotransferase 28 U/L (16-63); Albumin Level 4.1 g/dL (3.4-5.0); Alkaline Phosphatase 72 U/L (46-116); Anion Gap 6 mmol/L (4-12); Aspartate Amino Transferase 10 U/L (15-37); Bilirubin,Total 0.5 mg/dL (0.00-1.00); Blood Urea Nitrogen 10 mg/dL (7-18); Calcium 9.2 mg/dL (8.5-10.1); Carbon Dioxide 35 mmol/L (21-32); Chloride 104 mmol/L (98-108); Cholesterol 112 mg/dL (0-200); Estimated Glomerular Filt Rate > 60; Glucose 92 mg/dL (70-99); HDL Direct 56 mg/dL (40-60); LDL Cholesterol Calculated 52 mg/dL (<130); Osmolality Calculated 299 mOsm/kg (285-295); Potassium 4.6 mmol/L (3.5-5.1); Sodium 145 mmol/L (136-145); Thyroid Stimulating Hormone 1.91 uIU/mL (0.36-3.74); Total Protein 6.7 g/dL (6.4-8.2); Triglycerides 22 mg/dL (0-150); Vitamin B12 524 pg/mL (193-986)
[2024-12-03 10:09] LABS: Vitamin D 25 Hydroxy 67 ng/mL (30-100)
== END 2024-12-02 10:46 | disposition home or self-care (01) ==
LOC: CHSLAB 10:49
PROVIDERS: PCP Registered Nurse; Visit Provider Registered Nurse
DX: E06.3 Autoimmune thyroiditis (principal); E53.8 Deficiency of other specified B group vitamins; E55.9 Vitamin D deficiency, unspecified; E78.5 Hyperlipidemia, unspecified
CPT/HCPCS: 36415; 80053; 80061; 82306; 82607; 84443; 85025

== ENCOUNTER 2025-02-09 10:36 | Outpatient (CLI) | payer OTHER, SELFPAY ==
[2025-02-09 11:28] LABS: Thyroid Stimulating Hormone 1.17 uIU/mL (0.36-3.74)
--- OUTSIDE RECORDS SUMMARY | 2025-02-09 11:43 | XMS_ITS | Clinical Summary ---
Author Organization [facility] Address [address] [place] [id number] Care Team Providers Care Quarter Doper Name Role Phone Dinesh Phillip MD Primary Care Provider [phone] Allergies No known active allergies Medications levothyroxine 175 MCG tabletIndications:O ther specified hypothyroidism Take 1 tablet (175 mcg total) by mouth every morning. 90 tablet 1 0 Active Active Problems Problem Noted Date Diagnosed Date Other specified hypothyroidism 04/21/2019 Immunizations Name Administration Dates Next Due Dtap 02/22/2003,11/12/1998,04/18/1998 Dtap (Generic) 02/13/1998,1997 Hepatitis B 02/14/1998,1997 Hepatitis B Pediatric 1997 Hib 11/12/1998, 8,02/14/1998,11/18 MENINGOCOCCAL A C Y&W-135 oligosaccharide (MENVEO) 07/09/2015 MMR 02/22/2003,11/12/1998 Polio IPV (Ipol) 02/22/2003,04/18/1998, 8 Polio Ipv (Generic) 02/14/1998 Varicella Vaccine 11/12/1998 Family History Medical History Relation Comments No Known Problems Father No Known Problems Mother Relation Status Comments Father Alive Mother Alive Social History Tobacco Use Types Packs/Day Years Used Date Smoking Tobacco: Never Smokeless Tobacco: Never Alcohol Use Standard Drinks/Week Comments Yes 0 (1 standard drink = 0.6 oz pur e alcohol) socially PHQ-2 Answer Date Recorded PHQ-2 Score 2 03/19/2020 Sex and Gender Information Value Date Recorded Sex Assigned at Not on file Legal Sex Male 5:46 PM [employer] Gender Identity Not on file Sexual Orientation Not on file Last Filed Vital Signs Vital Sign Reading Time Taken Comments Blood Pressure 110/74 08/13/2020 10:41 AM CDT Pulse 67 08/13/2020 10:41 AM CDT Temperature 36.6 C (97.9 F) 08/13/2020 10:41 AM CDT Respiratory Rate 16 08/13/2020 10:4 1 AM CDT Oxygen Saturation 99% 08/13/2020 10: 41 AM CDT Inhaled Oxygen Concentration - - Weight 104.5 kg (230 lb 6.4 oz) 020 10:41 AM CDT Height 175.3 cm (5' 9 ) 08/13/2020 10:4 1 AM CDT Body Mass Index 34.02 08/13/2020 10:41 AM CDT Plan of Treatment Health Maintenance Due Date Last Done Comments Hepatitis B Vaccines (4 of 4 - 4-dose series) 04/09/1998 02/14/1998, 1997, 1997 DTaP, Tdap and Td Vaccines (6 - Tdap) 2008 02/22/2003, 11/12/1998, 04/18/1998, Additional history exists Annual Physical 04/21/2020 04/21/2019 COVID-19 Vaccine ( season) 2024 Influenza Adult (#1) 2024 Meningococcal Vaccine Completed 07/09/2015 Hepatitis C Completed 05/30/2019 HPV Vaccines Aged Out No longer eligi ble based on patient's age to complete this topic Meningococcal B Vaccine Aged Out No l onger eligible based on patient's age to complete this topic Pneumococcal Vaccine: Pediatrics (0 to 5 Years) and At-Risk Patients (6 to 64 Years) Aged Out No longer eligible based on patient's age to complete this topic RSV Immunizations Under 20 Months Aged Out No longer eligible based on patient's age to complete this topic Procedures Procedure Name Priority Date/Time Associated Diagnosis Comments HEPATITIS PANEL,ACUTE Routine 05/30/2019 11:13 AM CDT Liver enzyme elevation from Last 3 Months or Most Recently Relevant to Health Maintenance Results * HEPATITIS PANEL,ACUTE (05/30/2019 11:13 AM CDT) HEPATITIS B SURFACE AG NON-REACTI VE NON-REACTI VE 05/30/2019 8:04 PM CDT [facility] HEP B CORE IGM NON-REACTI VE NON-REACTI VE 05/30/2019 8:25 PM CDT [facility] HAV IGM NON-REACTI VE NON-REACTI VE 05/30/2019 8:47 PM CDT [facility] HEPATITIS C AB NON-REACTI VE NON-REACTI VE 05/30/2019 8:25 PM CDT [facility] 05/30/2019 11:1 3 AM CDT Dinesh Phillip MD LABORATORY Final Resul t [facility] [address] [place] [address], from Last 3 Months or Most Recently Relevant to Health Maintenance Insurance Care Teams Quarter Doper Relationship Specialty [place] [id number] [place] [address] PCP - General FAMILY PRACTICE 04/13/19
[2025-02-11 05:25] LABS: Thyroid Peroxidase Antibodies 26 IU/mL (<9)
== END 2025-02-09 10:37 | disposition home or self-care (01) ==
PROVIDERS: PCP Registered Nurse; Visit Provider Internal Medicine Endocrinology, Diabetes & Metabolism
DX: E06.3 Autoimmune thyroiditis (principal); F32.A Depression, unspecified
CPT/HCPCS: 36415; 84439; 84443; 86376

== ENCOUNTER 2025-07-03 12:45 | Outpatient (CLI) | payer OTHER, SELFPAY ==
--- NOTE | ~2025-07-03 | CT_ITS ---
EXAMINATION: CT diagnostic chest wo con DATE: 07/03/2025 13:05 INDICATION: Lung nodules. TECHNIQUE: Computed tomography (CT) of the chest was performed without intravenous contrast. The dose -length product was 213.92 mGy-cm. COMPARISON: 06/21/2024 and 12/14/2023 FINDINGS: No enlarged mediastinal or hilar lymph nodes. Heart is unenlarged. Thoracic is unremarkable. Visualiz ed upper abdomen is unremarkable. Tracheobronchial tree is patent. No pneumothorax. No pleural effusi on. Pulmonary consolidation. No pulmonary mass. New 1.1 cm spiculated pulmonary nodule in the left lower lobe. Numerous stable pulmonary nodule scattered throughout both lungs. IMPRESSION: 1. New 1.1 cm spiculated pulmonary nodule in the left lower lobe. A PET/CT and/or biopsy is recommend ed. 2. Numerous stable bilateral pulmonary nodules. A follow up chest CT in 3 months is recommended. Reviewed, dictated and finalized at location A. IMPRESSION: 1. New 1.1 cm spiculated pulmonary nodule in the left lower lobe. A PET/CT and/ or biopsy is recommended. 2. Numerous stable bilateral pulmonary nodules. A follow up chest CT in 3 month s is recommended.
[2025-07-03 13:04] LABS: Hematocrit 46.7 % (40.0-54.0); Hemoglobin 15.3 g/dL (14.0-18.0); Immature Granulocyte Percent A 0.6 % (0.0-0.0); Lymphocytes Absolute Auto 2.13 K/mm3 (1.10-4.50); Mean Corpuscular HGB Conc 32.8 g/dL (32-36); Mean Corpuscular Hemoglobin 29.6 pg (27.0-31.0); Mean Corpuscular Volume 90.3 fL (78.0-102.0); Nucleated Red Blood Cells Absolute Auto 0.00 K/mm3 (0.00-0.00); Nucleated Red Blood Cells Perc 0.0 % (0-0.0); Platelet Count Result 192 K/mm3 (150-420); Red Blood Count 5.17 M/mm3 (4.70-6.10); White Blood Count 7.2 K/mm3 (4.8-10.8)
[2025-07-03 13:37] LABS: Alanine Aminotransferase 18 U/L (6-50); Albumin Level 4.6 g/dL (3.5-5.1); Alkaline Phosphatase 54 U/L (38-126); Anion Gap 5 mmol/L (4-12); Aspartate Amino Transferase 19 U/L (17-59); Bilirubin,Total 0.7 mg/dL (0.2-1.3); Blood Urea Nitrogen 10 mg/dL (9-20); Calcium 9.7 mg/dL (8.4-10.2); Carbon Dioxide 34 mmol/L (22-30); Chloride 101 mmol/L (98-107); Cholesterol 119 mg/dL (0-200); Estimated Glomerular Filt Rate > 60; Glucose 103 mg/dL (65-110); HDL Direct 55 mg/dL; Osmolality Calculated 289 mOsm/kg (285-295); Potassium 4.3 mmol/L (3.4-5.0); Sodium 140 mmol/L (137-145); Total Protein 7.1 g/dL (6.3-8.2); Triglycerides 53 mg/dL (<150)
[2025-07-03 14:26] LABS: Vitamin B12 634.0 pg/mL (239-931)
== END 2025-07-03 12:46 | disposition home or self-care (01) ==
LOC: CHSIMG 12:47
PROVIDERS: PCP Registered Nurse; Visit Provider Registered Nurse
DX: R91.8 Other nonspecific abnormal finding of lung field (principal); E78.5 Hyperlipidemia, unspecified; E53.8 Deficiency of other specified B group vitamins
CPT/HCPCS: 36415; 71250; 80053; 80061; 82607; 85025